=== PATIENT | male | born 1995 ===

== ENCOUNTER 2024-05-17 16:51 | Emergency (ER) | payer OTHER ==
[~2024-05-17] VITALS: Ht 160 cm; Wt 65.8 kg
[2024-05-17] MEDS ORDERED: Diphth,Pertuss(Acell),Tet Vac 0.5 ML VIAL IM ONE (17:10)
[2024-05-17] MEDS ORDERED: Tranexamic Acid 1000 MG/10 ML 10ML Vial (SDV) TOP ONE (17:50)
== END 2024-05-17 18:37 | disposition home or self-care (01) ==
LOC: ER 16:51
DX: S51.812A Laceration without foreign body of left forearm, initial encounter (principal); R58 Hemorrhage, not elsewhere classified; W45.8XXA Other foreign body or object entering through skin, initial encounter; W18.30XA Fall on same level, unspecified, initial encounter
CPT/HCPCS: 12032; 90471; 90715; 99282-25